=== PATIENT | female | born 2000 | race Caucasian/White ===

== ENCOUNTER 2024-09-23 23:11 | Emergency (ER) | payer MEDICAID ==
[2024-09-23 23:42] VITALS: TEMP 98.4
--- NOTE | 2024-09-23 23:43 | ERPHSYRPT ---
- History of Present Illness Time Seen by Provider: 09/23/24 23:43 Source: patient, family Exam Limitations: no limitations Patient Subjective Stated Complaint: pt reports she gave one week ago, vaginal term delivery at [facility], states today she lifted a heavy crib and started to have increased vaginal bleeding and pain, reports that she feels like she could pass out from the pain. pt also states she is constipated. 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 Triage Nursing Assessment: pt is aox3, afebrile, resps easy and non labored, radial pulses strong and equal, cap refill < 3 sec, pt abd soft, tender to lower quadrants, pt with moderate bright red vaginal bleeding with some small blood clots present on her pad. Physician History: This is a 24-year-old white female patient who is 1 week vaginal delivery at [facility]. She arrives by private vehicle secondary to lifting in a crib that was heavy and then passed some bright red blood vaginally with clot present. This occurred at approximately 2300 this evening. She felt as though she was going to pass out. Patient does not recall whether or not she had an episiotomy. She has been constipated especially in the last couple of days but has not used any medication to help relieve her constipation. The pain in the suprapubic and pelvic area is described as sharp and crampy. She is on methadone and gabapentin daily as she is recovering opiate user. She has not had any nausea or vomiting symptoms. Patient is on an antibiotic and she does not recall the name of it. Timing/Duration: today Activites at Onset: physical activity (Most lifting heavy crib) Quality: sharpness, stabbing Onset Location: suprapubic, pelvic pain Pain Radiation: none Severity of Pain-Max: moderate Severity of Pain-Current: mild Sexual intercourse history: non-contributory Modifying Factors: Improves With: position Associated Symptoms: abdominal pain (Prepubic and pelvic pain), vaginal discharge ( vaginal bleeding) Allergies/Adverse Reactions: No Known Drug Allergies Allergy (Unverified 09/23/24 23:42) Home Medications: Gabapentin [Neurontin ] 100 mg PO DAILY 09/23/24 [History] Methadone HCl 10 mg [DOLOPHINE 10MG Tablet] 65 mg PO DAILY 09/23/24 [History] Olanzapine 5 mg [zyPREXA 5MG TABLET] 5 mg PO DAILY 09/23/24 [History] Ferrous Sulfate 325 mg [Feosol 325 mg] 325 mg PO DAILY 09/24/24 [History] Metronidazole 500 mg [Flagyl 500 MG] 500 mg PO DAILY 09/24/24 [History] Olanzapine 5 mg [zyPREXA 5MG TABLET] 5 mg PO DAILY 09/24/24 [History] Hx Tetanus, Diphtheria Vaccination/Date Given: Yes Hx Influenza Vaccination/Date Given: No Hx Pneumococcal Vaccination/Date Given: No Travel Risk - International Travel Have you traveled outside of the country in past 3 weeks: No - Emerging Infectious Disease Are you exhibiting symptoms associated with any current EIDs: No - Review of Systems Constitutional: No Symptoms Eyes: No Symptoms Ears, Nose, & Throat: No Symptoms Respiratory: No Symptoms Cardiac: No Symptoms Abdominal/Gastrointestinal: Abdominal Pain Genitourinary Symptoms: Vaginal Bleeding Musculoskeletal: No Symptoms Skin: No Symptoms Neurological: No Symptoms Psychological: No Symptoms Endocrine: No Symptoms Hematologic/Lymphatic: No Symptoms Immunological/Allergic: No Symptoms All Other Systems: Reviewed and Negative - Past Medical History Pertinent Past Medical History: Yes Respiratory History: Asthma Endocrine Medical History: Hypoglycemia Psycho-Social History: Bipolar, Depression Other Medical History: pt in recovery for 7.5 months, takes methadone - Past Surgical History Past Surgical History: No - Female History Hx Now: No - Social History Smoking Status: Former smoker Drug Use: none - Social Determinants of Health Will the patient participate in the screening: Declined to provide - Nursing Vital Signs Nursing Vital Signs: Initial Vital Signs Temperature 98.4 F 09/23/24 23:24 Pulse Rate 64 09/23/24 23:24 Respiratory Rate 18 09/23/24 23:24 Blood Pressure 122/71 09/23/24 23:24 O2 Sat by Pulse Oximetry 99 09/23/24 23:24 Pain Scale Pain Intensity 8 - Physical Exam General Appearance: no apparent distress, alert, anxiety, thin Eye Exam: PERRL/EOMI, eyes nml inspection Ears, Nose, Throat Exam: normal ENT inspection, moist mucous membranes Neck Exam: normal inspection, non-tender, supple, full range of motion Respiratory Exam: normal breath sounds, lungs clear, airway intact, No chest tenderness, No respiratory distress Cardiovascular Exam: regular rate/rhythm, normal heart sounds, normal peripheral pulses Gastrointestinal/Abdomen Exam: soft, normal bowel sounds, No tenderness Pelvic Exam: not done Rectal Exam: not done Back Exam: normal inspection, normal range of motion, No CVA tenderness, No vertebral tenderness Extremity Exam: normal inspection, normal range of motion, pelvis stable Neurologic Exam: alert, oriented x 3, cooperative, financial reporting accountant II-XII nml as tested, nml cerebellar function, nml station & gait, sensation nml Skin Exam: normal color, warm, dry Lymphatic Exam: No adenopathy SpO2 Interpretation: normal SpO2: 99 O2 Delivery: Room Air - Course Nursing assessment & vital signs reviewed: Yes Ordered Tests: Active Orders 24 hr Category Date Time Status IV Insertion STAT Care 09/23/24 23:51 Active ABDOMEN AND PELVIS W/0 CONTRAS [CT] Stat Exams 09/23/24 23:52 Completed CBC W DIFF Stat Lab 09/23/24 23:51 Completed CMP Stat Lab 09/23/24 23:51 Completed CULTURE,URINE Stat Lab 09/24/24 02:14 Received UA W/RFX UR CULTURE Stat Lab 09/24/24 02:14 Completed Medication Summary Discontinued Medications Generic Name Dose Route Start Last Admin Trade Name Jezq PRN Reason Stop Dose Admin Acetaminophen 650 mg 09/24/24 01:18 09/24/24 02:28 Acetaminophen 325 Mg Tablet PO 09/24/24 01:19 650 mg STAT ONE Administration Acetaminophen Confirm 09/24/24 02:27 Acetaminophen 325 Mg Tablet Administered 09/24/24 02:28 Dose 650 mg .ROUTE .STK-MED ONE Sodium Chloride 1,000 mls @ 999 mls/hr 09/23/24 23:51 09/24/24 02:33 Sodium Chloride 0.9% 1000 Ml IV 09/24/24 00:51 Infused .Q1H1M STA Infusion Sodium Chloride Confirm 09/24/24 00:18 Sodium Chloride 0.9% 1000 Ml Administered 09/24/24 00:19 Dose 1,000 mls @ ud .ROUTE .STK-MED ONE Ketorolac Tromethamine 30 mg 09/24/24 01:18 09/24/24 02:28 Ketorolac Tromethamine 30 Mg/Ml Inj IV 09/24/24 01:19 30 mg STAT ONE Administration Ketorolac Tromethamine Confirm 09/24/24 02:27 Ketorolac Tromethamine 30 Mg/Ml Inj Administered 09/24/24 02:28 Dose 30 mg .ROUTE .STK-MED ONE Ondansetron HCl 4 mg 09/23/24 23:51 09/24/24 02:34 Ondansetron Hcl 4 Mg/2 Ml Vial IV 09/23/24 23:52 Not Given STAT ONE Lab/Rad Data: Laboratory Result Diagrams 09/24/24 00:00 09/24/24 00:00 Laboratory Results 09/24/24 09/24/24 09/24/24 Range/Units 02:14 00:00 00:00 WBC 13.9 H (3.98-10.04) x10^3/uL RBC 3.90 L (3.93-5.22) x10^6/uL Hgb 9.5 L (11.2-15.7) g/dL Hct 30.6 L (34.1-44.9) % MCV 78.5 L (79.4-94.8) fL MCH 24.4 L (25.6-32.2) pg MCHC 31.0 L (32.2-35.5) g/dL RDW 16.4 H (11.7-14.4) % Plt Count 431 H (182-369) x10^3/uL MPV 9.8 (9.4-12.3) fL Gran % 75.2 H (34.0-71.1) % Immature Gran % (Auto) 0.4 (0.001-0.429) % Nucleat RBC Rel Count 0.0 (0.00-0.2) % Eos # (Auto) 0.38 H (0.04-0.36) x10^3/uL Immature Gran # (Auto) 0.06 H (0.001-0.031) x10^3u/L Absolute Lymphs (auto) 2.21 (1.18-3.74) x10^3/uL Absolute Monos (auto) 0.75 (0.24-0.86) x10^3/uL Absolute Nucleated RBC 0.00 (0.00-0.012) x10^3u/L Lymphocytes % 15.9 L (19.3-51.7) % Monocytes % 5.4 (4.7-12.5) % Eosinophils % 2.7 (0.7-5.8) % Basophils % 0.4 (0.1-1.2) % Absolute Granulocytes 10.44 H (1.56-6.13) x10^3/uL Basophils # 0.06 (0.01-0.08) x10^3/uL Sodium 136 (135-145) mmol/L Potassium 4.0 (3.5-5.1) mmol/L Chloride 103 (98-107) mmol/L Carbon Dioxide 26 (22-30) mmol/L Anion Gap 11.2 (5-15) MEQ/L BUN 12 (7-17) mg/dL Creatinine 0.66 (0.52-1.04) mg/dL Estimated GFR 124.0 ML/MIN Glucose 92 (74-106) mg/dL Calcium 9.2 (8.4-10.2) mg/dL Total Bilirubin 0.20 (0.2-1.3) mg/dL AST 31 (14-36) U/L ALT 20 (0-35) U/L Alkaline Phosphatase 97 (38-126) U/L Serum Total Protein 7.3 (6.3-8.2) g/dL Albumin 3.9 (3.5-5.0) g/dL Urine Color Yellow (Yellow) Urine Appearance Clear (Clear) Urine pH 6.5 (4.6-8.0) Ur Specific Gervais 1.010 (1.005-1.030) Urine Protein Negative (Negative) Urine Glucose (UA) Negative (Negative) mg/dL Urine Ketones Negative (Negative) Urine Blood Moderate A (Negative) Urine Nitrite Negative (Negative) Urine Bilirubin Negative (Negative) Urine Urobilinogen 0.2 (0.2) mg/dL Ur Leukocyte Esterase Small A (Negative) U Hyaline Cast (Auto) NONE SEEN (0-2) /LPF Urine Microscopic RBC 21-50 A (0-5) /HPF Urine Microscopic WBC 21-50 A (0-5) /HPF Ur Epithelial Cells None Seen (None Seen) /HPF Urine Bacteria None Seen (None Seen) /HPF Urine Culture Reflexed YES (NO) - Progress Progress: re-examined Air Movement: good Progress Note: 09/24/24 01:10 My medical decision making and the assignment of moderate complexity to this patient's medical issue today is based on review of the patient's past medical history, review of the patient's medication list, reviewed patient drug allergy list, history present illness and physical findings on examination. The workup in this patient includes placement of an intravenous line, infusion of normal saline solution, CBC, CMP, urinalysis, CT scan of the abdomen pelvis without contrast. Differential diagnosis includes but is not limited to expected bleeding, urinary tract infection, acute intraabdominal/pelvis abnormality, constipation 09/24/24 01:44 The urinalysis is pending. The patient has anemia with a level of 9.5. This is within the range of a acceptable, 1 week hemoglobin level. Patient does have a mild leukocytosis CT scan of the abdomen pelvis without contrast was interpreted by the radiologist and I reviewed the impression. The impression states enlarged status uterus. Appendix is normal and it is visualized. There is no other acute abnormality seen. 09/24/24 01:46 09/24/24 02:59 Urinalysis interpreted by me. Mild leukocyte Estrace with hematuria present and 21-50 white count. Patient is to continue using her Bactrim DS antibiotics. Blood Culture(s) Obtained: No Counseled pt/family regarding: lab results, diagnosis, rad results Medical Desision Making - Diagnostic Testing Diagnostic test were ordered, analyzed, and reviewed by me: Yes Radiological Interpretation: Reviewed by me, Teleradiologist Report - Risk of complications Low Risk: Low risk of morbidity from additional dx testing or treatment - Departure Departure Disposition: Home Clinical Impression: bleeding, Constipation, UTI (urinary tract infection) Condition: Stable Critical Care Time: No Referrals: SARBJIT BUI MD [Primary Care Provider] - Follow up/PCP as directed Additional Instructions: Drink plenty of fluids. Use MiraLAX [id number] as instructed on package to help relieve constipation. You may also use [id number] glycerin suppositories or fleets enemas rectally per instructions on the package. Incr ease your activity level. Call your manager rn case on 09/26/2024. If your symptoms worsen over the weekend, you may benefit from going directly to [facility] where your manager rn case practices. You may also return to our emergency department. Use ibuprofen and Tylenol for pain control. The bleeding can be intermittent over the next 3 to 6 weeks. Change your pads frequently to avoid infection. Return to the emergency department if you are dizzy, lightheaded, have increased weakness or you have a rapid heart rate. Continue your antibiotics as prescribed
[2024-09-24] MEDS ORDERED: Sodium Chloride 0.9% 1000 ML 1,000 ML ONE (00:18)
[2024-09-24 00:19] LABS: Absolute Neutrophil Ct (ANC) 10.44 x10^3/uL (1.56-6.13); BASOPHIL % 0.4 % (0.1-1.2); Basophil (Absolute #) 0.06 x10^3/uL (0.01-0.08); Eosinophil % 2.7 % (0.7-5.8); Eosinophil (Absolute #) 0.38 x10^3/uL (0.04-0.36); Hematocrit 30.6 % (34.1-44.9); Hemoglobin 9.5 g/dL (11.2-15.7); IMMATURE GRAN # 0.06 x10^3u/L (0.001-0.031); IMMATURE GRAN % 0.4 % (0.001-0.429); Lymphocyte (Absolute #) 2.21 x10^3/uL (1.18-3.74); Lymphocytes % 15.9 % (19.3-51.7); Mean Cell Volume 78.5 fL (79.4-94.8); Mean Corpuscular Hemoglobin 24.4 pg (25.6-32.2); Mean Platelet Volume 9.8 fL (9.4-12.3); Monocyte (Absolute #) 0.75 x10^3/uL (0.24-0.86); Monocytes % 5.4 % (4.7-12.5); Neutrophil % 75.2 % (34.0-71.1); Platelet Count 431 x10^3/uL (182-369); Red Cell Distribution Width 16.4 % (11.7-14.4); White Blood Count 13.9 x10^3/uL (3.98-10.04)
[2024-09-24 00:32] LABS: ALBUMIN 3.9 g/dL (3.5-5.0); ANION GAP 11.2 MEQ/L (5-15); BILIRUBIN,TOTAL 0.2 mg/dL (0.2-1.3); Calcium 9.2 mg/dL (8.4-10.2); Creatinine 1 0.66 mg/dL (0.52-1.04); Total Protein 7.3 g/dL (6.3-8.2)
[2024-09-24] MEDS: Sodium Chloride 0.9% 1000 ML 1,000 ML IV STA (00:40)
--- NOTE | 2024-09-24 01:36 | XRAY ---
CLINICAL HISTORY: vaginal bleeding COMPARISON: None. TECHNIQUE: Contiguous axial images were obtained from the level of the diaphragm to the pubic symphysis without intravenous or oral contrast. Coronal and sagittal reconstructions were likewise performed and indicated to increase the sensitivity for detecting clinically relevant pathology. CT scan was performed according to ALARA (as low as reasonable achievable). FINDINGS: The visualized lung bases are clear. Evaluation of the abdominal and pelvic visceral organs is limited without intravenous contrast. The unenhanced liver, spleen, pancreas, and adrenal glands are grossly unremarkable. The gallbladder is present. The kidneys are normal in size and attenuation, without obvious calcification. There is no hydronephrosis or perinephric stranding. The ureters are normal in caliber. No adenopathy or fluid collections are seen. No evidence of focal or diffuse bowel wall thickening or evidence of bowel obstruction is seen. The appendix is visualized in the right lower quadrant and appears within normal limits. The aorta is normal in caliber. The urinary bladder is normal in contour. Uterus appears enlarged in size measures about 97 x 70 x 68 mm- status. No aggressive appearing osseous lesions are identified. Right kidney IMPRESSION: Uterus appears enlarged in size measures about 97 x 70 x 68 mm- status. No other abnormality seen. Electronically Signed by: Juan Luna MD. (09/24/2024 01:33:19 EST)
[2024-09-24 02:21] VITALS: RESP 18
[2024-09-24] MEDS ORDERED: TORAdol 30 mg Injection ONE (02:27)
[2024-09-24] MEDS ORDERED: TYLENOL 325 MG ONE (02:27)
[2024-09-24] MEDS: TORAdol 30 mg Injection IV ONE (02:28)
[2024-09-24] MEDS: TYLENOL 325 MG PO ONE (02:28)
[2024-09-24] MEDS: Zofran 4 MG/2 ML VIAL IV ONE (02:34)
[2024-09-24 02:43] LABS: Appearance Clear (Clear); Bacteria None Seen /HPF (None Seen); Bilirubin Negative (Negative); Blood Moderate (Negative); Epithelial Cells None Seen /HPF (None Seen); Glucose, Urine Negative (Negative); Hyaline Casts NONE SEEN /LPF (0-2); Ketones Negative (Negative); Leukocyte Esterase Small (Negative); Nitrite Negative (Negative); Ph 6.5 (4.6-8.0); Protein,Urine Dip Negative (Negative); RBC 21-50 /HPF (0-5); Urobilinogen 0.2 mg/dL (0.2); WBC 21-50 /HPF (0-5)
[2024-09-24 03:00] VITALS: PULSE 71
[2024-09-24 03:02] VITALS: BP 125/73; O2SAT 98
== END 2024-09-24 03:11 | disposition home or self-care (01) ==
LOC: ED 23:11
DX: O72.2 Delayed and secondary postpartum hemorrhage (principal); R10.2 Pelvic and perineal pain; D72.829 Elevated white blood cell count, unspecified; N39.0 Urinary tract infection, site not specified; K59.00 Constipation, unspecified
CPT/HCPCS: 36415; 74176; 80053; 81001; 85025; 87086; 96360; 96374; 99284; J1885; A9270-GY